=== PATIENT | female | born 1985 | race Caucasian/White ===

== ENCOUNTER 2019-02-05 09:58 | Emergency (ER) | payer OTHER ==
--- NOTE | 2019-02-05 10:46 | XRAY Report ---
Reason: pain with movement Procedure Date: 02/05/2019 Accession Number: [id number] / [id number] Procedure: XR - Wrist 4 View LT CPT Code: FULL RESULT: EXAM: LEFT WRIST RADIOGRAPHY EXAM DATE: 02/05/2019 10:38 AM. CLINICAL HISTORY: Pain with movement. COMPARISON: None. TECHNIQUE: 4 views. FINDINGS: Bones: Normal. No fractures or bone lesions. Joints: Normal. No subluxations. Soft Tissues: Normal. No soft tissue swelling. IMPRESSION: Normal wrist radiography. No acute osseous abnormality. RADIA
--- NOTE | 2019-02-05 11:35 | ED Physician Documentation ---
PD HPI UPPER EXT INJURY - Stated complaint Stated Complaint: WRIST PX - Chief complaint Chief Complaint: Ext Problem - History obtained from History obtained from: Patient - History of Present Illness Location: Left, Wrist Type of injury: Fall Where injury occurred: Home Timing - onset: How many days ago (4) Timing - duration: Days (4) Timing - details: Abrupt onset, Still present Improved by: Rest, Immobilization Worsened by: Moving, Palpating Associated symptoms: Swelling. No: Weakness, Numbness Contributing factors: No: Anticoagulated Similar symptoms before: Has not had sx before Recently seen: Not recently seen - Additonal information Additional information: 33-year-old female fell in her home 4 days ago and she had some pain in her left wrist and the pain is progressively worsened. She has continued to use her wrist and describes the pain is over the dorsum of the wrist especially if she is using it. She is holding her wrist in a flexed position Review of Systems Constitutional: denies: Fever Ears: denies: Ear pain Nose: denies: Congestion Respiratory: denies: Cough GI: denies: Vomiting PD PAST MEDICAL HISTORY - Present Medications Home Medications: Ambulatory Orders Medication Instructions Recorded Confirmed Ethinyl Estradiol/Drospirenone 1 each PO DAILY 02/05/19 02/05/19 [Melissa 28 Tablet] Hydrocodone/Acetaminophen 1 - 2 each PO Q6H PRN #14 tablet 02/05/19 [Hydrocodon-Acetaminophen 5-325] Lorazepam [Ativan] 2 mg PO TID 02/05/19 02/05/19 Venlafaxine ER [Effexor ER] 225 mg PO DAILY 02/05/19 02/05/19 - Allergies Allergies/Adverse Reactions: Allergies Allergy/AdvReac Type Severity Reaction Status Date / Time No Known Drug Allergies Allergy Verified 02/05/19 10:09 - Social History Does the pt smoke?: No Smoking Status: Never smoker PD ED PE NORMAL - Vitals Vital signs reviewed: Yes (hypertensive ) - General General: Alert and oriented X 3, No acute distress, Well developed/nourished - HEENT HEENT: Atraumatic, PERRL, EOMI - Respiratory Respiratory: No respiratory distress - Derm Derm: Normal color, Warm and dry, No rash - Extremities Extremities: No deformity, No edema, Other (There is tenderness to the wrist on the left over the dorsum of the wrist and there is no tenderness to the anatomic snuff box. She is able to flex and extend the wrist but with pain . Distal n/v is intact. 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 No acute osseous abnormality.), EMP read indepedently, See rad report Procedures - Splint (location) wrist Splint applied by: Tech Type of splint: Fiberglass, Volar cock up Other: Patient tolerated well, No complications, Neurovascular intact, Good alignment PD MEDICAL DECISION MAKING - ED course Complexity details: reviewed results, re-evaluated patient, considered differential, d/w patient ED course: 33-year-old female with a fall and pain in her wrist has no evidence of fracture on x-ray examination she is placed into a volar cock-up splint and expected to need to wear this for 1 to 2 weeks. She does not have tenderness over the anatomic snuffbox. She does have a primary care doctor for follow-up. Departure - Departure Disposition: 01 Home, Self Care Clinical Impression: Left wrist sprain Qualifiers: Encounter type: initial encounter Qualified Code(s): S63.502A - Unspecified sprain of left wrist, initial encounter Condition: Stable Instructions: ED Sprain Wrist Follow-Up: HATTIE MCKNIGHT [Primary Care Provider] - Prescriptions: Hydrocodone/Acetaminophen [Hydrocodon-Acetaminophen 5-325] 1 - 2 each PO Q6H PRN #14 tablet PRN Reason: pain
[2019-02-05 12:06] VITALS: BP 133/86
== END 2019-02-05 12:04 | disposition home or self-care (01) ==
LOC: ED 09:58
DX: S63.502A Unspecified sprain of left wrist, initial encounter (principal); W19.XXXA Unspecified fall, initial encounter; Y92.009 Unspecified place in unspecified non-institutional (private) residence as the place of occurrence of the external cause
CPT/HCPCS: 29125; 99283

== ENCOUNTER 2019-08-29 11:18 | Emergency (ER) | payer OTHER ==
[2019-08-29] MEDS ORDERED: CHERRY SYRUP 10 ML UDC PO ONE (12:01)
[2019-08-29] MEDS ORDERED: DEXAMETHASONE 10 MG/ML VIAL PO STA (12:01)
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
[2019-08-29] MEDS ORDERED: KETOROLAC 60 MG/2 ML VIAL IM STA (12:12)
--- NOTE | 2019-08-29 12:50 | XRAY Report ---
Reason: fall lower back pain Procedure Date: 08/29/2019 Accession Number: [id number] / [id number] Procedure: XR - Lumbar Spine 2 View CPT Code: FULL RESULT: EXAM: LUMBOSACRAL SPINE RADIOGRAPHY EXAM DATE: 08/29/2019 12:34 PM. CLINICAL HISTORY: Fall, lower back pain. COMPARISONS: RIBS W/PA CHEST LT 08/29/2019 12:08 PM. TECHNIQUE: 3 views. FINDINGS: Alignment: Normal. No spondylolisthesis or scoliosis. Bones: Five [id number] lumbar vertebral bodies are present. No fractures or bone lesions. Disks: Disk space heights are generally preserved with the exception of L5-S1 where there is loss of disk space height, endplate sclerosis and marginal osteophytosis. Facets: There is multilevel facet arthropathy which is most pronounced at L5 where it is moderate. L5 pars defects are suspected. Sacroiliac Joints: Unremarkable. Soft Tissues: Normal. The visualized bowel gas pattern is normal. IMPRESSION: L5 degenerative changes likely due to pars defects. RADIA
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
[2019-08-29 13:37] VITALS: BP 126/82
== END 2019-08-29 13:37 | disposition home or self-care (01) ==
LOC: ED 11:18
DX: S22.32XA Fracture of one rib, left side, initial encounter for closed fracture (principal); W01.198A Fall on same level from slipping, tripping and stumbling with subsequent striking against other object, initial encounter; Y93.01 Activity, walking, marching and hiking; Y92.008 Other place in unspecified non-institutional (private) residence as the place of occurrence of the external cause; M51.36 Other intervertebral disc degeneration, lumbar region
CPT/HCPCS: 71101; 72100; 96372; 99284; A9270

== ENCOUNTER 2019-12-09 16:49 | Emergency (ER) | payer OTHER ==
[2019-12-09 16:59] VITALS: BP 132/76
[2019-12-09 17:43] LABS: BILIRUBIN,URINE NEGATIVE (NEGATIVE); GLUCOSE, URINE (UA) NEGATIVE (NEGATIVE); KETONES,URINE (UA) NEGATIVE (NEGATIVE); LEUKOCYTE ESTERASE, URINE NEGATIVE (NEGATIVE); NITRITE,URINE NEGATIVE (NEGATIVE); OCCULT BLOOD,URINE NEGATIVE (NEGATIVE); PROTEIN,URINE NEGATIVE (NEGATIVE); UROBILINOGEN,URINE 0.2 (NORMAL) E.U./dL (NORMAL)
[2019-12-09 17:45] LABS: CLARITY,URINE CLEAR (CLEAR)
[2019-12-09] MEDS ORDERED: DEXAMETHASONE 10 MG/ML VIAL PO STA (17:54)
[2019-12-09] MEDS ORDERED: CYCLOBENZAPRINE 10 MG TABLET PO STA (17:54)
[2019-12-09] MEDS ORDERED: CHERRY SYRUP 10 ML UDC PO ONE (17:54)
--- NOTE | 2019-12-09 18:01 | ED Physician Documentation ---
PD HPI BACK PAIN - Stated complaint Stated Complaint: LOWER BACK/GROIN PX - Chief complaint Chief Complaint: Back Pain - History obtained from History obtained from: Patient - History of Present Illness Timing - onset: How many days ago (2) Timing - duration: Days (2) Timing - details: Gradual onset Pain level max: 6 Pain level now: 5 Location: Lower, Right Quality: Pain, Spasm Associated symptoms: No: Fever, Weakness, Numbness, Incontinent of urine, Unable to urinate, Hematuria, Incontinent of stool Improves with: Rest Worsened by: Movement, Twisting Contributing factors: Other (Patient states that the pain started after she was doing cheerleading kicks with her daughter, felt a pull in the right groin, fell and twisted on her back.). 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 - Present Medications Home Medications: Ambulatory Orders Medication Instructions Recorded Confirmed Ethinyl Estradiol/Drospirenone 1 each PO DAILY 02/05/19 08/29/19 [Melissa 28 Tablet] Lorazepam [Ativan] 2 mg PO TID 02/05/19 08/29/19 Venlafaxine ER [Effexor ER] 225 mg PO DAILY 02/05/19 08/29/19 Hydrocodone/Acetaminophen 1 - 2 each PO Q6H PRN #14 tablet 08/29/19 [Hydrocodon-Acetaminophen 5-325] Cyclobenzaprine [Flexeril] 10 mg PO TID PRN #20 tablet 12/09/19 Hydrocodone/Acetaminophen 1 - 2 each PO Q6H PRN #10 tablet 12/09/19 [Hydrocodon-Acetaminophen 5-325] Meloxicam [Mobic] 15 mg PO DAILY PRN #20 tablet 12/09/19 - Allergies Allergies/Adverse Reactions: Allergies Allergy/AdvReac Type Severity Reaction Status Date / Time No Known Drug Allergies Allergy Verified 12/09/19 16:59 - Social History Does the pt smoke?: No Smoking Status: Never smoker Does the pt drink ETOH?: No Does the pt have substance abuse?: No PD ED PE NORMAL - Vitals Vital signs reviewed: Yes - General General: Alert and oriented X 3, No acute distress, Well developed/nourished - HEENT HEENT: Moist mucous membranes - Neck Neck: Supple, no meningeal sign - Cardiac Cardiac: RRR, Strong equal pulses - Respiratory Respiratory: No respiratory distress, Clear bilaterally - Abdomen Abdomen: Soft, Non tender, Non distended - Back Back: No spinal TTP, Other (Tender to palpation right low lumbar paraspinal spasm present. Also tender over the right SI joint.) - Derm Derm: Warm and dry - Extremities Extremities: Other (Normal bilateral lower extremity patellar and ankle jerk reflexes. Normal great toe extension bilaterally. no saddle anesthesia. No bony tenderness in the right lower extremity. Does have pain with internal and external rotation of the right thigh and hip. Neurovascular intact) - Neuro Neuro: Alert and oriented X 3, No motor deficit, No sensory deficit - Psych Psych: Normal mood, Normal affect Results - Vitals Vitals: Vital Signs - 24 hr 12/09/19 16:55 Temperature 36.2 C L Heart Rate 101 H Respiratory 16 Rate Blood Pressure 132/76 H O2 Saturation 96 Oxygen O2 Source Room air - Labs Labs: Laboratory Tests 12/09/19 12/09/19 17:00 17:00 Urine Color YELLOW Urine Clarity CLEAR Urine pH 6.0 Ur Specific [place] 1.020 1.020 Urine Protein NEGATIVE Urine Glucose (UA) NEGATIVE Urine Ketones NEGATIVE Urine Occult Blood NEGATIVE Urine Nitrite NEGATIVE Urine Bilirubin NEGATIVE Urine Urobilinogen 0.2 (NORMAL) Ur Leukocyte Esterase NEGATIVE Ur Microscopic Review NOT INDICATED Urine Culture Comments NOT INDICATED Urine HCG, Qual NEGATIVE PD MEDICAL DECISION MAKING - ED course Complexity details: considered differential (No cauda equina, no spinal epidural abscess, no fracture, no aortic dissection or evidence of aneursym rupture), d/w patient ED course: Patient with what appears to be a low back strain and right groin strain. No evidence of cauda equina, epidural abscess or fracture. Feels better after medication. Ambulating well. No neurological deficits. Patient counseled regarding signs and symptoms for which I believe and urgent re-evaluation would be necessary. Patient with good understanding of and agreement to plan and is comfortable going home at this time This document was made in part using voice recognition software. While efforts are made to proofread this document, sound alike and grammatical errors may occur. Departure - Departure Disposition: 01 Home, Self Care Clinical Impression: Strain of muscle of right groin region Lumbar strain Qualifiers: Encounter type: initial encounter Qualified Code(s): S39.012A - Strain of muscle, fascia and tendon of lower back, initial encounter Condition: Good Instructions: ED Sprain Strain Lumbar Follow-Up: JUSTIN STARK ARNP [Primary Care Provider] - Within 1 week Prescriptions: Cyclobenzaprine [Flexeril] 10 mg PO TID PRN #20 tablet PRN Reason: Spasms Hydrocodone/Acetaminophen [Hydrocodon-Acetaminophen 5-325] 1 - 2 each PO Q6H PRN #10 tablet PRN Reason: pain Meloxicam [Mobic] 15 mg PO DAILY PRN #20 tablet PRN Reason: pain Comments: Follow-up with your doctor for a repeat evaluation within 1 week. Use the medications as prescribed. This should improve over the next few days. You may still have symptoms for 2 weeks. Do not drink alcohol or drive while on narcotic pain medicine. Note that many narcotic pain relievers also contain tylenol/acetaminophen. Please ensure that your total dose of acetaminophen from all sources does not exceed 3 grams (3000mg) per day. You may constipated on this medication, take a stool softener such as "Colace" twice a day while you are on it. Also recommend a vvnu-upa-gfauwlo laxative such as senna or MiraLAX any day that you do not have a bowel movement. If you received narcotic pain medication in the emergency department, do not drive or operate machinery for the next 24 hours. Discharge Date/Time: 12/09/19 18:16
[2019-12-09] MEDS ORDERED: MELOXICAM 7.5 MG TABLET PO STA (18:05)
[2019-12-09 18:08] LABS: HCG UR QUAL NEGATIVE
[2019-12-10] MEDS ORDERED: MELOXICAM 7.5 MG TABLET PO SCH (09:00)
== END 2019-12-09 18:16 | disposition home or self-care (01) ==
LOC: ED 16:49
DX: S39.011A Strain of muscle, fascia and tendon of abdomen, initial encounter (principal); S39.012A Strain of muscle, fascia and tendon of lower back, initial encounter; X50.1XXA Overexertion from prolonged static or awkward postures, initial encounter; Y93.45 Activity, cheerleading
CPT/HCPCS: 81003; 81025; 99283; 99284; A9270; 81001; 87086

== ENCOUNTER 2020-01-20 08:51 | Emergency (ER) | payer OTHER ==
--- NOTE | 2020-01-20 09:13 | ED Physician Documentation ---
PD HPI MHE - Stated complaint Stated Complaint: ANXIETY - Chief complaint Chief Complaint: General - History obtained from History obtained from: Patient - History of Present Illness Primary symptom: Depression (father on , needs to fly to [place] on . since last , increased anxiety, diff eating/sleeping. c/o increased anxiety. denies throught to harm self or other. denies any plan. requesting help to manage anxiety while dealing with fathers .). 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 Was in contact with PCP and will get counseling started when returns from [place], planned right now to be or .) Recently seen: Not recently seen Review of Systems Constitutional: denies: Fever, Chills Nose: denies: Rhinorrhea / runny nose, Congestion Throat: denies: Sore throat Respiratory: denies: Cough Neurologic: denies: Focal weakness, Numbness Psychiatric: reports: Depressed, Anxiety, Insomnia. 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 - Present Medications Home Medications: Ambulatory Orders Medication Instructions Recorded Confirmed Venlafaxine ER [Effexor ER] 225 mg PO DAILY 02/05/19 08/29/19 ALPRAZolam [Alprazolam] 0.5 mg PO BID PRN #25 tablet 01/20/20 traZODone [Desyrel] 50 mg PO HS PRN #12 tablet 01/20/20 - Allergies Allergies/Adverse Reactions: Allergies Allergy/AdvReac Type Severity Reaction Status Date / Time No Known Drug Allergies Allergy Verified 01/20/20 09:01 - Social History Does the pt smoke?: No Smoking Status: Never smoker Does the pt drink ETOH?: No Does the pt have substance abuse?: No PD ED PE NORMAL - Vitals Vital signs reviewed: Yes - General General: Alert and oriented X 3, No acute distress, Well developed/nourished - Neck Neck: Supple, no meningeal sign, No adenopathy - Cardiac Cardiac: RRR, No murmur - Respiratory Respiratory: Clear bilaterally - Abdomen Abdomen: Normal bowel sounds, Soft, Non tender, Non distended - Back Back: No CVA TTP - Derm Derm: Normal color, Warm and dry - Extremities Extremities: Normal ROM s pain - Neuro Neuro: Alert and oriented X 3, No motor deficit, No sensory deficit Results - Vitals Vitals: Vital Signs - 24 hr 01/20/20 01/20/20 09:01 10:38 Temperature 36.2 C L 36.7 C Heart Rate 99 79 Respiratory 20 16 Rate Blood Pressure 125/83 H 110/69 O2 Saturation 97 98 Oxygen O2 Source Room air PD MEDICAL DECISION MAKING - ED course Complexity details: considered differential (seems reasonable to Rx short term meds to help with anxiety and sleep), d/w patient Departure - Departure Disposition: Home, Self Care Clinical Impression: Grief reaction, Anxiety Condition: Stable Record reviewed to determine appropriate education?: Yes Instructions: ED Stress React Follow-Up: KODY Carreon [Provider Group] Prescriptions: ALPRAZolam [Alprazolam] 0.5 mg PO BID PRN #25 tablet PRN Reason: Anxiety traZODone [Desyrel] 50 mg PO HS PRN #12 tablet PRN Reason: Insomnia Comments: Stay well-hydrated. No alcohol. Continue usual medications. Add trazodone low-dose at night for sleep. Add alprazolam once or twice daily as needed for anxiety. Follow-up with grief counseling as planned through your primary care as soon as you return. Call the crisis line or seek help in [place] while there as needed. Discharge Date/Time: 01/20/20 10:39
[2020-01-20] MEDS ORDERED: ALPRAZolam 0.25 MG TABLET PO STA (09:39)
[2020-01-20 10:39] VITALS: BP 110/69
== END 2020-01-20 10:39 | disposition home or self-care (01) ==
LOC: ED 08:51
DX: F43.23 Adjustment disorder with mixed anxiety and depressed mood (principal); G47.00 Insomnia, unspecified
CPT/HCPCS: 99282; 99283; A9270

== ENCOUNTER 2020-02-06 16:08 | Emergency (ER) | payer OTHER ==
[2020-02-06] MEDS ORDERED: ALPRAZolam 0.25 MG TABLET PO STA (16:34)
--- NOTE | 2020-02-06 16:57 | ED Physician Documentation ---
PD HPI MHE - Stated complaint Stated Complaint: ANXIETY - Chief complaint Chief Complaint: MHE - History obtained from History obtained from: Patient - History of Present Illness Primary symptom: Anxiety Timing - onset: How many weeks ago (several weeks) Pain level max: 0 Pain level now: 0 Recently seen: Emergency Dept - Additional information Additional information: Patient states that her father recently unexpectedly and her is being deployed for 4 months tomorrow. She is having increased anxiety. Was seen here a few weeks ago for same and given Xanax. Because of the coronavirus, she has been unable to see her primary care provider. She has started talking to a counselor over the phone. She is not suicidal or homicidal. Review of Systems Constitutional: denies: Fever, Chills GI: denies: Vomiting, Diarrhea : denies: Now EGA Neurologic: denies: Altered mental status Psychiatric: reports: Anxiety. 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 - Present Medications Home Medications: Ambulatory Orders Medication Instructions Recorded Confirmed Venlafaxine ER [Effexor ER] 225 mg PO DAILY 02/05/19 08/29/19 ALPRAZolam [Alprazolam] 0.5 mg PO BID PRN #25 tablet 01/20/20 traZODone [Desyrel] 50 mg PO HS PRN #12 tablet 01/20/20 Alprazolam [Xanax] 1 mg PO BID PRN #20 tablet 02/06/20 - Allergies Allergies/Adverse Reactions: Allergies Allergy/AdvReac Type Severity Reaction Status Date / Time No Known Drug Allergies Allergy Verified 02/06/20 16:18 - Social History Does the pt smoke?: No Smoking Status: Never smoker Does the pt drink ETOH?: No Does the pt have substance abuse?: No PD ED PE NORMAL - Vitals Vital signs reviewed: Yes - General General: Alert and oriented X 3, No acute distress, Well developed/nourished - HEENT HEENT: Moist mucous membranes - Neck Neck: Supple, no meningeal sign - Cardiac Cardiac: RRR - Respiratory Respiratory: No respiratory distress, Clear bilaterally - Abdomen Abdomen: Soft, Non tender, Non distended - Derm Derm: Warm and dry - Extremities Extremities: No edema - Neuro Neuro: Alert and oriented X 3 - Psych Psych: Other (Tearful. Anxious.) Results - Vitals Vitals: Vital Signs - 24 hr 02/06/20 16:13 Temperature 36.7 C Heart Rate 98 Respiratory 18 Rate Blood Pressure 137/87 H O2 Saturation 96 Oxygen O2 Source Room air PD MEDICAL DECISION MAKING - ED course Complexity details: reviewed old records, considered differential, d/w patient ED course: Patient with grief reaction anxiety. She is unable to see her doctor secondary to [place] We will prescribe her a small amount of Xanax for home. Her mother is coming to stay with her from [place]. Social work was also consulted for resources. She is seeing a counselor now. Has a phone call with her counselor tomorrow Patient counseled regarding signs and symptoms for which I believe and urgent re- evaluation would be necessary. Patient with good understanding of and agreement to plan and is comfortable going home at this time This document was made in part using voice recognition software. While efforts are made to proofread this document, sound alike and grammatical errors may occur. Departure - Departure Disposition: 01 Home, Self Care Clinical Impression: Anxiety, Grief reaction Condition: Good Instructions: ED Stress React Follow-Up: JUSTIN STARK ARNP [Primary Care Provider] - Within 1 week Prescriptions: Alprazolam [Xanax] 1 mg PO BID PRN #20 tablet PRN Reason: Anxiety Comments: Follow-up with her counselor tomorrow. Follow-up with your doctor for further medication. Return if you worsen. Crisis Line and is available to talk to someone [email or web address] is also available to chat with someone online if you prefer. There are also many resources on this website and apps for your phone to help with your mental health You can also text the word START to [phone] to chat with someome via text.
[2020-02-06 17:20] VITALS: BP 130/84
== END 2020-02-06 17:19 | disposition home or self-care (01) ==
LOC: ED 16:08
DX: F43.22 Adjustment disorder with anxiety (principal)
CPT/HCPCS: 99283; 99284; A9270

== ENCOUNTER 2020-02-27 17:49 | Emergency (ER) | payer OTHER ==
[2020-02-27 18:03] VITALS: BP 140/104
[2020-02-27] MEDS ORDERED: ALPRAZolam 0.25 MG TABLET PO STA (18:21)
--- NOTE | 2020-02-27 18:23 | ED Physician Documentation ---
PD HPI MHE - Stated complaint Stated Complaint: ANXIETY, DEPRESSION - Chief complaint Chief Complaint: MHE - History obtained from History obtained from: Patient - History of Present Illness Primary symptom: Anxiety (34-year-old woman with longstanding anxiety and she is had a tough couple of months, her father recently and then her is deployed. She denies suicidal or homicidal ideation but needs something for anxiety and help with sleep. She has a plan to be admitted in [place] in about 10 days, but does not want to be admitted locally because she does not have childcare locally for her 4 and 6-year-old.) Review of Systems Constitutional: denies: Fever, Chills Respiratory: denies: Dyspnea, Cough GI: reports: Nausea. 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 - Present Medications Home Medications: Ambulatory Orders Medication Instructions Recorded Confirmed Venlafaxine ER [Effexor ER] 225 mg PO DAILY 02/05/19 02/27/20 traZODone [Desyrel] 50 mg PO HS PRN #12 tablet 01/20/20 02/27/20 Alprazolam [Xanax] 1 mg PO BID PRN #20 tablet 02/06/20 02/27/20 Alprazolam [Xanax] 1 mg PO BID #20 tablet 02/27/20 - Allergies Allergies/Adverse Reactions: Allergies Allergy/AdvReac Type Severity Reaction Status Date / Time No Known Drug Allergies Allergy Verified 02/27/20 17:59 - Social History Does the pt smoke?: No Smoking Status: Never smoker Does the pt drink ETOH?: No Does the pt have substance abuse?: No PD ED PE NORMAL - Vitals Vital signs reviewed: Yes - General General: Alert and oriented X 3, Other (Tearful and anxious) - HEENT HEENT: PERRL, EOMI - Neuro Neuro: Alert and oriented X 3, Normal speech - Psych Psych: Normal mood, Normal affect Results - Vitals Vitals: Vital Signs - 24 hr 02/27/20 17:59 Temperature 36.6 C Heart Rate 103 H Respiratory 15 Rate Blood Pressure 140/104 H O2 Saturation 98 Oxygen O2 Source Room air PD MEDICAL DECISION MAKING - ED course ED course: 34-year-old woman with worsening of anxiety and depression. No suicidal or homicidal ideation. No hallucinations. She does not want to be admitted locally and requests a refill of the alprazolam until she can get admitted in [place] which is her plan. Departure - Departure Disposition: 01 Home, Self Care Clinical Impression: Anxiety, Grief reaction Condition: Good Record reviewed to determine appropriate education?: Yes Instructions: ED Depression, ED Panic Attack Prescriptions: Alprazolam [Xanax] 1 mg PO BID #20 tablet Comments: Return anytime if you worsen or decide you would like to be admitted to a psychiatric facility closer to here. Otherwise follow the plan you already have in place. Do not drink or drive while taking the alprazolam.
== END 2020-02-27 18:44 | disposition home or self-care (01) ==
LOC: ED 17:49
DX: F41.9 Anxiety disorder, unspecified (principal); F32.9 Major depressive disorder, single episode, unspecified; F43.20 Adjustment disorder, unspecified
CPT/HCPCS: 99282; 99283; A9270

== ENCOUNTER 2020-03-02 17:19 | Emergency (ER) | payer OTHER ==
[2020-03-02] MEDS ORDERED: ALPRAZolam 0.25 MG TABLET PO STA (17:47)
--- NOTE | 2020-03-02 17:50 | ED Physician Documentation ---
History of Present Illness - Stated complaint Stated Complaint: MHE - Chief complaint Chief Complaint: General - History obtained from History obtained from: Patient - History of Present Illness Timing: Chronic Pain level max: 0 Pain level now: 0 - Additonal information Additional information: 34-year-old female presents the emergency department with increasing anxiety. She states that this been worsening over the past few weeks. Has had a of her father. is deployed. Her mother is now with her and helping with her children. She states she is out of her Xanax and requesting a short refill until she goes to [place] at the end of the week. She plans on checking herself into a psychiatric hospital at that point. She is not currently suicidal or homicidal. 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 - Present Medications Home Medications: Ambulatory Orders Medication Instructions Recorded Confirmed Venlafaxine ER [Effexor ER] 225 mg PO DAILY 02/05/19 02/27/20 traZODone [Desyrel] 50 mg PO HS PRN #12 tablet 01/20/20 02/27/20 Alprazolam [Xanax] 1 mg PO BID PRN #20 tablet 02/06/20 02/27/20 Alprazolam [Xanax] 1 mg PO BID #20 tablet 02/27/20 Alprazolam [Xanax] 1 mg PO BID PRN #14 tablet 03/02/20 - Allergies Allergies/Adverse Reactions: Allergies Allergy/AdvReac Type Severity Reaction Status Date / Time No Known Drug Allergies Allergy Verified 03/02/20 17:24 - Social History Does the pt smoke?: No Smoking Status: Never smoker Does the pt drink ETOH?: No Does the pt have substance abuse?: No PD ED PE NORMAL - Vitals Vital signs reviewed: Yes - General General: Alert and oriented X 3, No acute distress - HEENT HEENT: Moist mucous membranes - Neck Neck: Supple, no meningeal sign - Cardiac Cardiac: RRR - Respiratory Respiratory: No respiratory distress, Clear bilaterally - Derm Derm: Warm and dry, No rash - Neuro Neuro: Alert and oriented X 3 - Psych Psych: Normal mood, Normal affect Results - Vitals Vitals: Vital Signs - 24 hr 03/02/20 03/02/20 17:25 18:05 Temperature 37.2 C Heart Rate 108 H 87 Respiratory 17 16 Rate Blood Pressure 140/108 H 145/97 H O2 Saturation 100 98 Oxygen O2 Source Room air PD MEDICAL DECISION MAKING - ED course Complexity details: considered differential, d/w patient ED course: Patient with increasing anxiety. No suicidal or homicidal ID patient. Will prescribe a small amount of Xanax for her until she can be seen in [place] at the end of the week. Contracts for safety. Patient counseled regarding signs and symptoms for which I believe and urgent re-evaluation would be necessary. Patient with good understanding of and agreement to plan and is comfortable going home at this time This document was made in part using voice recognition software. While efforts are made to proofread this document, sound alike and grammatical errors may occur. Departure - Departure Disposition: 01 Home, Self Care Clinical Impression: Anxiety, Grief reaction Condition: Good Instructions: ED Panic Attack Follow-Up: your,doctor in 1 week [Other] Prescriptions: Alprazolam [Xanax] 1 mg PO BID PRN #14 tablet PRN Reason: Anxiety Comments: You need to follow-up with your doctor for further prescriptions. Follow-up with the [facility] and in [place] on Sunday. Return if you worsen. Do not drive or operate heavy machinery while taking the Xanax. Discharge Date/Time: 03/02/20 18:06
[2020-03-02 18:07] VITALS: BP 145/97
== END 2020-03-02 18:06 | disposition home or self-care (01) ==
LOC: EDUNIT# → ED 17:19
DX: F41.9 Anxiety disorder, unspecified (principal); F43.20 Adjustment disorder, unspecified; Z76.0 Encounter for issue of repeat prescription
CPT/HCPCS: 99283; A9270

== ENCOUNTER 2020-07-16 15:55 | Emergency (ER) | payer OTHER ==
--- NOTE | 2020-07-16 16:40 | ED Physician Documentation ---
History of Present Illness - Stated complaint Stated Complaint: ABD PAIN - Chief complaint Chief Complaint: Abd Pain - History obtained from History obtained from: Patient - History of Present Illness Timing: Today Pain level max: 5 Pain level now: 4 - Additonal information Additional information: 35-year-old female presents to the emergency department with right upper quadrant and right flank abdominal pain. Ongoing for the past 6 to 7 hours. States she has been told she has gallstones in the past. She states she has had increased urinary frequency as well. No dysuria. No vaginal bleeding or discharge. No nausea or vomiting. No diarrhea, some constipation. Nothing makes it better or worse. 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 - Present Medications Home Medications: Ambulatory Orders Medication Instructions Recorded Confirmed Venlafaxine ER [Effexor ER] 225 mg PO DAILY 02/05/19 02/27/20 traZODone [Desyrel] 50 mg PO HS PRN #12 tablet 01/20/20 02/27/20 Alprazolam [Xanax] 1 mg PO BID PRN #20 tablet 02/06/20 02/27/20 Alprazolam [Xanax] 1 mg PO BID #20 tablet 02/27/20 Alprazolam [Xanax] 1 mg PO BID PRN #14 tablet 03/02/20 Cefdinir 300 mg PO BID #20 capsule 07/16/20 - Allergies Allergies/Adverse Reactions: Allergies Allergy/AdvReac Type Severity Reaction Status Date / Time No Known Drug Allergies Allergy Verified 07/16/20 16:16 - Living Situation Living Arrangement: reports: At home - Social History Does the pt smoke?: No Smoking Status: Never smoker Does the pt drink ETOH?: No Does the pt have substance abuse?: No PD ED PE NORMAL - Vitals Vital signs reviewed: Yes - General General: Alert and oriented X 3, No acute distress, Well developed/nourished - HEENT HEENT: PERRL, Moist mucous membranes - Neck Neck: Supple, no meningeal sign - Cardiac Cardiac: RRR, Strong equal pulses - Respiratory Respiratory: No respiratory distress, Clear bilaterally - Abdomen Abdomen: Soft, Non distended, Other (Mild right upper quadrant tenderness to palpation. Negative Montilla sign) - Back Back: Other (Mild right CVA tenderness) - Derm Derm: Warm and dry - Extremities Extremities: No edema, No calf tenderness / cord - Neuro Neuro: Alert and oriented X 3 - Psych Psych: Normal mood, Normal affect Results - Vitals Vitals: Vital Signs - 24 hr 07/16/20 07/16/20 07/16/20 16:13 16:37 18:16 Temperature 36.6 C Heart Rate 94 80 90 Respiratory 20 16 18 Rate Blood Pressure 168/114 H 119/81 H 130/89 H O2 Saturation 96 100 100 07/16/20 19:20 Temperature Heart Rate 62 Respiratory 16 Rate Blood Pressure 122/68 O2 Saturation 99 Oxygen O2 Source Room air - Labs Labs: Laboratory Tests 07/16/20 07/16/20 07/16/20 16:30 16:34 16:34 WBC 9.1 RBC 4.25 Hgb 12.2 Hct 37.6 MCV 88.5 MCH 28.7 MCHC 32.4 RDW 14.5 Plt Count 369 MPV 10.1 Neut # (Auto) 7.1 H Lymph # (Auto) 1.2 L [place] # (Auto) 0.6 Eos # (Auto) 0.1 Baso # (Auto) 0.0 Absolute Nucleated RBC 0.00 Nucleated RBC % 0.0 Sodium 136 Potassium 3.5 Chloride 98 L Carbon Dioxide 27 Anion Gap 11.0 BUN 15 Creatinine 0.7 Estimated GFR (MDRD) 94 Glucose 100 Calcium 9.0 Total Bilirubin 0.5 AST 30 ALT 45 Alkaline Phosphatase 59 Total Protein 7.8 Albumin 4.2 Globulin 3.6 Albumin/Globulin Ratio 1.2 Lipase 34 Urine Color YELLOW Urine Clarity CLOUDY Urine pH 6.5 Ur Specific [place] 1.025 Urine Protein 30 H Urine Glucose (UA) NEGATIVE Urine Ketones TRACE Urine Occult Blood TRACE-LYSE Urine Nitrite NEGATIVE Urine Bilirubin NEGATIVE Urine Urobilinogen 1 (NORMAL) Ur Leukocyte Esterase MODERATE H Urine RBC 0-5 Urine WBC >25 H Ur Squamous Epith Cells MOD Squamous H Urine Bacteria Rare Urine Mucus Marked Strands Ur Microscopic Review INDICATED Urine Culture Comments NOT INDICATED Urine HCG, Qual NEGATIVE - Rads (name of study) Right upper quadrant ultrasound Radiology: Prelim report reviewed, EMP read contemporaneously, See rad report PD MEDICAL DECISION MAKING - ED course Complexity details: reviewed results, re-evaluated patient, considered differential, d/w patient ED course: 35-year-old female with what appears to be pyelonephritis, likely early. Given IV Rocephin and will place on cefdinir for home. Does not have cholecystitis. Patient is well-appearing, nontoxic. Afebrile. Patient counseled regarding signs and symptoms for which I believe and urgent re-evaluation would be necessary. Patient with good understanding of and agreement to plan and is comfortable going home at this time This document was made in part using voice recognition software. While efforts are made to proofread this document, sound alike and grammatical errors may occur. Cholelithiasis without definite evidence of cholecystitis. Evaluation limited by nonfasting state. Departure - Departure Disposition: 01 Home, Self Care Clinical Impression: Pyelonephritis Condition: Good Instructions: ED Kidney Infec Female Follow-Up: your,doctor in 1 week [Other] Prescriptions: Cefdinir 300 mg PO BID #20 capsule Comments: Call antibiotics until gone. Return if you worsen. Follow-up with your doctor for recheck in approximately 1 week. Discharge Date/Time: 07/16/20 19:20
[2020-07-16 16:52] LABS: GLUCOSE, URINE (UA) NEGATIVE (NEGATIVE); KETONES,URINE (UA) TRACE mg/dL (NEGATIVE); LEUKOCYTE ESTERASE, URINE MODERATE (NEGATIVE); NITRITE,URINE NEGATIVE (NEGATIVE); OCCULT BLOOD,URINE TRACE-LYSE (NEGATIVE); PH,URINE 6.5 PH (5.0-7.5); PROTEIN,URINE 30 mg/dL (NEGATIVE); UROBILINOGEN,URINE 1 (NORMAL) E.U./dL (NORMAL)
[2020-07-16 16:54] LABS: CLARITY,URINE CLOUDY (CLEAR); HCG UR QUAL NEGATIVE
[2020-07-16 16:56] LABS: BASOPHILS % (AUTO) 0.4 %; EOSINOPHILS # (AUTO) 0.1 10^3/uL (0.0-0.7); EOSINOPHILS % (AUTO) 1.2 %; HGB - HEMOGLOBIN 12.2 g/dL (12.0-16.0); LYMPHOCYTES # (AUTO) 1.2 10^3/uL (1.5-3.5); LYMPHOCYTES % (AUTO) 13.4 %; MEAN CORPUSCULAR HEMOGLOBIN 28.7 pg (27.0-31.0); MEAN CORPUSCULAR HGB CONC 32.4 g/dL (32.0-36.0); MEAN CORPUSCULAR VOLUME 88.5 fL (81.0-99.0); MEAN PLATELET VOLUME 10.1 fL (7.9-10.8); MONOCYTES # (AUTO) 0.6 10^3/uL (0.0-1.0); MONOCYTES % (AUTO) 6.1 %; NEUTROPHILS # (AUTO) 7.1 10^3/uL (1.5-6.6); NEUTROPHILS % (AUTO) 78.7 %; PLT - PLATELET COUNT 369 10^3/uL (130-450); RED BLOOD COUNT 4.25 10^6/uL (4.20-5.40); RED CELL DISTRIBUTION WIDTH 14.5 % (12.0-15.0); WHITE BLOOD COUNT 9.1 x10^3/uL (4.8-10.8)
[2020-07-16 16:59] LABS: BILIRUBIN,URINE NEGATIVE (NEGATIVE); ICTOTEST,URINE NEGATIVE
[2020-07-16 17:12] LABS: ALBUMIN 4.2 g/dL (3.2-5.5); ALBUMIN/GLOBULIN RATIO 1.2 (1.0-2.2); BILIRUBIN,TOTAL 0.5 mg/dL (0.2-1.0); CREATININE 0.7 mg/dL (0.4-1.0); TOTAL PROTEIN 7.8 g/dL (6.7-8.2)
[2020-07-16 17:17] LABS: BACTERIA,URINE Rare /HPF (None Seen); RBC,URINE 0-5 /HPF (0-5); SQUAMOUS EPITHELIAL CELL,UR MOD Squamous (<= Few)
[2020-07-16 17:18] LABS: MUCUS,URINE Marked Strands
[2020-07-16] MEDS ORDERED: cefTRIAXone 1 GM VIAL IVP STA (19:00)
--- NOTE | 2020-07-16 19:02 | Ultrasound Report ---
PROCEDURE: Abdomen Limited INDICATIONS: RUQ pain, h/o gallstones TECHNIQUE: Real-time focused scanning was performed of the right upper quadrant, with image documentation. COMPARISON: None. FINDINGS: The visualized liver shows no focal hepatic lesions. The gallbladder is nondistended secondary to nonfasting state. 2 stones are demonstrated in the gallb ladder fundus, measuring up to 1.5 cm and 1.4 cm. There is biliary sludge is noted within the gallbla dder lumen. Evaluation of gallbladder wall thickness is limited due to incomplete distention. No madelyn cholecystic fluid. No intra or extra hepatic biliary ductal dilatation. Common bile duct measures up to 0.4 cm. The visualized pancreas appears unremarkable sonographically. Right kidney measures up to 10.5 cm. No hydronephrosis. IMPRESSION: 1. Cholelithiasis without definite evidence of cholecystitis. Evaluation limited by nonfasting state. Reviewed by: Riley Lin MD on 07/16/2020 7:01 PM PDT Approved by: Riley Lin MD on 07/16/2020 7:01 PM PDT Station ID: [id number]
[2020-07-16 19:21] VITALS: BP 122/68
== END 2020-07-16 19:20 | disposition home or self-care (01) ==
LOC: ED 15:55
DX: N12 Tubulo-interstitial nephritis, not specified as acute or chronic (principal); K80.20 Calculus of gallbladder without cholecystitis without obstruction
CPT/HCPCS: 36415; 76705; 80053; 81001; 81003; 81025; 83690; 85025; 87086; 99284

== ENCOUNTER 2020-08-07 22:13 | Emergency (ER) | payer OTHER ==
--- NOTE | 2020-08-07 22:17 | ED Physician Documentation ---
History of Present Illness - Stated complaint Stated Complaint: RT FLANK PX - History obtained from History obtained from: Patient - Additonal information Additional information: Patient is a 35-year-old female who presents with right upper quadrant pain with a history of gallstones without fevers or any signs of jaundice reports nausea but no vomiting or constipation denies any other complaints. Review of Systems Constitutional: reports: Reviewed and negative Eyes: reports: Reviewed and negative Ears: reports: Reviewed and negative Nose: reports: Reviewed and negative Throat: reports: Reviewed and negative Cardiac: reports: Reviewed and negative Respiratory: reports: Reviewed and negative GI: reports: Abdominal Pain, Nausea : reports: Reviewed and negative Skin: reports: Reviewed and negative Musculoskeletal: reports: Reviewed and negative Neurologic: reports: Reviewed and negative Psychiatric: reports: Reviewed and negative Endocrine: reports: Reviewed and negative Immunocompromised: reports: Reviewed and negative PD PAST MEDICAL HISTORY - Past Medical History Psych: Anxiety - 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 - Present Medications Home Medications: Ambulatory Orders Medication Instructions Recorded Confirmed Venlafaxine ER [Effexor ER] 225 mg PO DAILY 02/05/19 02/27/20 traZODone [Desyrel] 50 mg PO HS PRN #12 tablet 01/20/20 02/27/20 - Allergies Allergies/Adverse Reactions: Allergies Allergy/AdvReac Type Severity Reaction Status Date / Time No Known Drug Allergies Allergy Verified 07/16/20 16:16 - Social History Does the pt smoke?: No Smoking Status: Never smoker Does the pt drink ETOH?: No Does the pt have substance abuse?: No PD ED PE NORMAL - Vitals Vital signs reviewed: Yes - General General: Alert and oriented X 3, No acute distress, Well developed/nourished - HEENT HEENT: Atraumatic, PERRL, Ears normal, Moist mucous membranes, Pharynx benign, Dentition benign - Neck Neck: Supple, no meningeal sign, No adenopathy - Cardiac Cardiac: RRR, No murmur, Strong equal pulses - Respiratory Respiratory: No respiratory distress, Clear bilaterally - Abdomen Abdomen: Normal bowel sounds, Soft, Other (Mild tenderness in the right upper quadrant but negative Montilla signs, no midline abdominal pulsatile mass no peritoneal signs nonsurgical abdomen) - Derm Derm: Warm and dry - Extremities Extremities: No deformity - Neuro Neuro: Alert and oriented X 3 - Psych Psych: Normal mood, Normal affect Results - Vitals Vitals: Vital Signs - 24 hr 08/07/20 08/08/20 22:16 00:24 Temperature 36.6 C 36.5 C Heart Rate 111 H 89 Respiratory 22 14 Rate Blood Pressure 142/104 H 127/80 O2 Saturation 98 98 Oxygen O2 Source Room air - Labs Labs: Laboratory Tests 08/07/20 08/07/20 08/07/20 22:31 23:08 23:08 WBC 11.4 H RBC 4.44 Hgb 12.7 Hct 39.1 MCV 88.1 MCH 28.6 MCHC 32.5 RDW 14.7 Plt Count 347 MPV 9.7 Neut # (Auto) 7.1 H Lymph # (Auto) 3.1 [place] # (Auto) 0.8 Eos # (Auto) 0.3 Baso # (Auto) 0.1 Absolute Nucleated RBC 0.00 Nucleated RBC % 0.0 PT 11.9 INR 1.1 APTT 32.5 Sodium Potassium Chloride Carbon Dioxide Anion Gap BUN Creatinine Estimated GFR (MDRD) Glucose Lactic Acid Calcium Total Bilirubin AST ALT Alkaline Phosphatase Total Protein Albumin Globulin Albumin/Globulin Ratio Lipase Urine Color YELLOW Urine Clarity CLEAR Urine pH 6.5 Ur Specific [place] 1.015 Urine Protein NEGATIVE Urine Glucose (UA) NEGATIVE Urine Ketones NEGATIVE Urine Occult Blood NEGATIVE Urine Nitrite NEGATIVE Urine Bilirubin NEGATIVE Urine Urobilinogen 0.2 (NORMAL) Ur Leukocyte Esterase SMALL H Urine RBC 0-5 Urine WBC 6-10 H Ur Squamous Epith Cells MANY Squamous H Urine Bacteria Rare Ur Microscopic Review INDICATED Urine Culture Comments NOT INDICATED Urine HCG, Qual NEGATIVE 08/07/20 08/07/20 23:08 23:20 WBC RBC Hgb Hct MCV MCH MCHC RDW Plt Count MPV Neut # (Auto) Lymph # (Auto) [place] # (Auto) Eos # (Auto) Baso # (Auto) Absolute Nucleated RBC Nucleated RBC % PT INR APTT Sodium 137 Potassium 3.7 Chloride 102 Carbon Dioxide 27 Anion Gap 8.0 BUN 29 H Creatinine 0.5 Estimated GFR (MDRD) 139 Glucose 108 H Lactic Acid 1.0 Calcium 9.2 Total Bilirubin 0.3 AST 23 ALT 16 Alkaline Phosphatase 60 Total Protein 7.9 Albumin 4.3 Globulin 3.6 Albumin/Globulin Ratio 1.2 Lipase 48 Urine Color Urine Clarity Urine pH Ur Specific [place] Urine Protein Urine Glucose (UA) Urine Ketones Urine Occult Blood Urine Nitrite Urine Bilirubin Urine Urobilinogen Ur Leukocyte Esterase Urine RBC Urine WBC Ur Squamous Epith Cells Urine Bacteria Ur Microscopic Review Urine Culture Comments Urine HCG, Qual PD MEDICAL DECISION MAKING - ED course ED course: 35-year-old female with a history of gallstones presents with right upper quadrant discomfort that is crampy coming and going relieved with IV fluids IV antiemetics and analgesics. Labs are unremarkable she is asymptomatic now would like to be discharged home and follow-up with her primary care provider. Departure - Departure Disposition: Home, Self Care Clinical Impression: Abdominal pain Qualifiers: Abdominal location: unspecified location Qualified Code(s): R10.9 - Unspecified abdominal pain Cholelithiasis Qualifiers: Cholelithiasis location: other site Biliary obstruction: without biliary obstruction Qualified Code(s): K80.80 - Other cholelithiasis without obstruction Condition: Stable Instructions: Gallstones Follow-Up: Zeferino Westfall MD [Provider Admit Priv/Credential] - Tomorrow Comments: Follow-up with your primary care provider on Sunday. Discharge Date/Time: 08/08/20 00:35
[2020-08-07 22:39] LABS: BILIRUBIN,URINE NEGATIVE (NEGATIVE); GLUCOSE, URINE (UA) NEGATIVE (NEGATIVE); KETONES,URINE (UA) NEGATIVE (NEGATIVE); LEUKOCYTE ESTERASE, URINE SMALL (NEGATIVE); NITRITE,URINE NEGATIVE (NEGATIVE); OCCULT BLOOD,URINE NEGATIVE (NEGATIVE); PH,URINE 6.5 PH (5.0-7.5); PROTEIN,URINE NEGATIVE (NEGATIVE); UROBILINOGEN,URINE 0.2 (NORMAL) E.U./dL (NORMAL)
[2020-08-07 22:40] LABS: CLARITY,URINE CLEAR (CLEAR)
[2020-08-07 22:45] LABS: HCG UR QUAL NEGATIVE
[2020-08-07 22:49] LABS: BACTERIA,URINE Rare /HPF (None Seen); RBC,URINE 0-5 /HPF (0-5); SQUAMOUS EPITHELIAL CELL,UR MANY Squamous (<= Few)
[2020-08-07] MEDS ORDERED: ONDANSETRON 4 MG/2 ML VIAL IVP STA (22:59)
[2020-08-07] MEDS ORDERED: MORPHINE 2 MG/ML CARPUJECT IVP STA (22:59)
[2020-08-07] MEDS ORDERED: SODIUM CHLORIDE 0.9% 1,000 ML IV STA (22:59)
[2020-08-07 23:23] LABS: BASOPHILS # (AUTO) 0.1 10^3/uL (0.0-0.1); BASOPHILS % (AUTO) 0.4 %; EOSINOPHILS # (AUTO) 0.3 10^3/uL (0.0-0.7); EOSINOPHILS % (AUTO) 2.4 %; HGB - HEMOGLOBIN 12.7 g/dL (12.0-16.0); LYMPHOCYTES # (AUTO) 3.1 10^3/uL (1.5-3.5); LYMPHOCYTES % (AUTO) 27.3 %; MEAN CORPUSCULAR HEMOGLOBIN 28.6 pg (27.0-31.0); MEAN CORPUSCULAR HGB CONC 32.5 g/dL (32.0-36.0); MEAN CORPUSCULAR VOLUME 88.1 fL (81.0-99.0); MEAN PLATELET VOLUME 9.7 fL (7.9-10.8); MONOCYTES # (AUTO) 0.8 10^3/uL (0.0-1.0); MONOCYTES % (AUTO) 6.6 %; NEUTROPHILS # (AUTO) 7.1 10^3/uL (1.5-6.6); NEUTROPHILS % (AUTO) 62.6 %; PLT - PLATELET COUNT 347 10^3/uL (130-450); RED BLOOD COUNT 4.44 10^6/uL (4.20-5.40); RED CELL DISTRIBUTION WIDTH 14.7 % (12.0-15.0); WHITE BLOOD COUNT 11.4 x10^3/uL (4.8-10.8)
[2020-08-07 23:30] LABS: INR 1.1 (0.8-1.2); PT - PROTHROMBIN TIME 11.9 secs (9.9-12.6)
[2020-08-07 23:37] LABS: PARTIAL THROMBOPLASTIN TIME 32.5 secs (24.9-33.3)
[2020-08-07 23:40] LABS: ALBUMIN 4.3 g/dL (3.2-5.5); ALBUMIN/GLOBULIN RATIO 1.2 (1.0-2.2); BILIRUBIN,TOTAL 0.3 mg/dL (0.2-1.0); CALCIUM 9.2 mg/dL (8.5-10.3); CREATININE 0.5 mg/dL (0.4-1.0); TOTAL PROTEIN 7.9 g/dL (6.7-8.2)
[2020-08-08 00:42] VITALS: BP 127/80
== END 2020-08-08 00:35 | disposition home or self-care (01) ==
LOC: ED 22:13
DX: K80.20 Calculus of gallbladder without cholecystitis without obstruction (principal)
CPT/HCPCS: 36415; 80053; 81001; 81003; 81025; 83605; 83690; 85025; 85610; 85730; 87086; 96361; 96374; 99283

== ENCOUNTER 2020-09-09 07:00 | Outpatient (CLI) | payer OTHER | END 2020-09-09 23:59 | disposition home or self-care (01) | LOC: COV 07:00 | PROVIDERS: ATTEND Surgery | DX: Z01.812 Encounter for preprocedural laboratory examination (principal); K80.70 Calculus of gallbladder and bile duct without cholecystitis without obstruction; Z20.828 Contact with and (suspected) exposure to other viral communicable diseases ==

== ENCOUNTER 2020-09-13 07:37 | Day surgery (SDC) | payer OTHER ==
[~2020-09-13 07:37] MED LIST: CEFAZOLIN SODIUM IN 0.9 % NACL 2 GM/100 ML BAG IV ONE
[2020-09-13 08:00] LABS: HCG UR QUAL NEGATIVE
[2020-09-13] MEDS ORDERED: LACTATED RINGERS 1,000 ML IV ONE ×2 (08:02→10:27)
[2020-09-13] MEDS ORDERED: MORPHINE 2 MG/ML CARPUJECT IVP PRN (08:16)
[2020-09-13] MEDS ORDERED: METOCLOPRAMIDE 10 MG/2 ML VIAL IVP PRN (08:16)
[2020-09-13] MEDS ORDERED: ONDANSETRON 4 MG/2 ML VIAL IVP PRN ×3 (08:16→10:24)
[2020-09-13] MEDS ORDERED: HYDROmorphone 0.5 MG/0.5 ML SYRINGE IVP PRN (08:16)
[2020-09-13] MEDS ORDERED: ePHEDrine 50 MG/ML VIAL IVP PRN (08:16)
[2020-09-13] MEDS ORDERED: ATROPINE ABBOJECT 1 MG/10 ML SYRINGE IVP PRN (08:16)
[2020-09-13] MEDS ORDERED: NALOXONE 0.4 MG/ML VIAL IVP PRN (08:16)
[2020-09-13] MEDS ORDERED: fentaNYL 100 MCG/2 ML VIAL IVP PRN (08:16)
--- NOTE | 2020-09-13 08:16 | ANESTHESIA ---
Pre-Anesthesia VS, & Labs - Diagnosis cholelithiasis, cholecystitis - Procedure Laparoscopic cholecystectomy Vital Signs: Temp Pulse Resp BP Pulse Ox 36.1 C L 93 16 108/83 H 97 09/13/20 07:48 09/13/20 07:48 09/13/20 07:48 09/13/20 07:48 09/13/20 07:48 Height: 5 ft 2 in Weight (kg): 64 kg Body Mass Index: 25.8 BMI Classification: Overweight - NPO >8 hours - Is Patient ?: Yes, No Home Medications and Allergies Home Medications: Ambulatory Orders Acetaminophen [Tylenol] 650 mg PO Q6H PRN 09/02/20 Ibuprofen [Motrin] 600 mg PO Q6H PRN 09/02/20 Venlafaxine ER [Effexor ER] 225 mg PO DAILY 02/05/19 Acetaminophen [Tylenol] 650 mg PO Q6H PRN 09/02/20 Ibuprofen [Motrin] 600 mg PO Q6H PRN 09/02/20 Allergies/Adverse Reactions: Allergies Allergy/AdvReac Type Severity Reaction Status Date / Time No Known Drug Allergies Allergy Verified 08/30/20 14:02 Anes History & Medical History - Anesthetic History Anesthesia Complications: reports: No previous complications Family history of Anesthesia Complications: Denies Family history of Malignant Hyperthermia: Denies - Medical History Cardiovascular: reports: None Pulmonary: reports: None Gastrointestinal: reports: Hepatitis, Cholelithiasis Urinary: reports: None Neuro: reports: None Musculoskeletal: reports: None Endocrine/Autoimmune: reports: None Blood Disorders: reports: None Skin: reports: None Smoking Status: Never smoker Psychosocial: reports: Anxiety - Surgical History Gynecologic: section, Breast reduction Orthopedic: Other Exam General: Alert, Oriented x3, Cooperative, No acute distress Dental: WNL Mouth Openin Fingerbreadth Neck Mobility: Normal Mallampati classification: I Respiratory: Lungs clear, Normal breath sounds, No respiratory distress, No accessory muscle use Cardiovascular: Regular rate, Normal S1, Normal S2, No murmurs Plan Anesthesia Type: General Consent for Procedure(s) Verified and Reviewed: Yes Code Status: Attempt Resuscitation ASA classification: 1-Healthy patient Is this case an emergency?: No
[2020-09-13] MEDS ORDERED: LACTATED RINGERS 1,000 ML IV SCH (09:00)
[2020-09-13] MEDS ORDERED: LIDOCAINE 1%-EPI 1:100000 20 ML MDV ONE (09:12)
[2020-09-13] MEDS ORDERED: BUPIVACAINE 0.5% PF 30 ML VIAL ONE (09:12)
[2020-09-13] MEDS ORDERED: fentaNYL 100 MCG/2 ML VIAL IVP ONE (09:22)
[2020-09-13] MEDS ORDERED: GLYCOPYRROLATE 1 MG/5 ML VIAL IVP ONE (09:22)
[2020-09-13] MEDS ORDERED: PROPOFOL 200 MG/20 ML VIAL IVP ONE (09:22)
[2020-09-13] MEDS ORDERED: ONDANSETRON 4 MG/2 ML VIAL IVP ONE (09:22)
[2020-09-13] MEDS ORDERED: KETOROLAC 30 MG/ML VIAL IVP ONE (09:22)
[2020-09-13] MEDS ORDERED: MIDAZOLAM 2 MG/2 ML VIAL IVP ONE (09:22)
[2020-09-13] MEDS ORDERED: METOPROLOL 5 MG/5 ML VIAL IVP ONE (09:22)
[2020-09-13] MEDS ORDERED: NEOSTIGMINE 1 MG/1 ML 10 ML MDV IVP ONE (09:22)
[2020-09-13] MEDS ORDERED: ACETAMINOPHEN 1,000 MG/100 ML 100 ML IV ONE (09:22)
[2020-09-13] MEDS ORDERED: DEXAMETHASONE 4 MG/ML VIAL IVP ONE (09:22)
[2020-09-13] MEDS ORDERED: ROCURONIUM 50 MG/5 ML VIAL IVP ONE (09:22)
[2020-09-13] MEDS ORDERED: BUPIVACAINE 0.5% PF 30 ML VIAL SUBQ ONE ×2 (09:46→10:09)
[2020-09-13] MEDS ORDERED: LIDOCAINE 1%-EPI 1:100000 20 ML MDV SUBQ ONE ×2 (09:46→10:09)
[2020-09-13] MEDS ORDERED: IBUPROFEN 600 MG TABLET PO PRN ×2 (10:16→10:24)
[2020-09-13] MEDS ORDERED: ACETAMINOPHEN 325 MG TABLET PO PRN ×2 (10:16→10:24)
[2020-09-13] MEDS ORDERED: oxyCODONE 5 MG TABLET PO PRN ×2 (10:16→10:24)
--- NOTE | 2020-09-13 10:16 | OPERATIVE REPORT ---
Operative Report - General Procedure Date: 09/13/20 Planned Procedure: Laparoscopic cholecystectomy Pre-Op Diagnosis: Cholelithiasis and cholecystitis Procedure Performed: Laparoscopic cholecystectomy Post Op Diagnosis: Cholelithiasis and cholecystitis - Procedure Note Primary Surgeon: Umm Anesthesia Provider: JACE Aceves Anesthesia Technique: General ET tube Pathology: Gallbladder in formalin to pathology Estimated Blood Loss (mL): 20 Findings: 1. large elongated gall bladder 2. right upper quadrant adhesions Complications: None apparent - Other Other Information/Narrative: After obtaining informed consent the patient is brought to the operating room and placed in the supine position on the operating table. Following successful induction of general endotracheal anesthesia, appropriate padding of all bony prominences, and placement of appropriate monitors, the abdomen was prepped and draped in the standard surgical fashion. A timeout was held per scope protocol. All elements of the surgical safety checklist were followed before, during, and after the procedure. Following infiltration with local anesthetic to create a field block, an incision was created inferior to the umbilicus and carried down through the skin and subcutaneous tissue to reveal the fascia below. 2-0 Vicryl retention sutures were placed on either side of the midline and the abdomen was entered under direct vision using a 15 blade scalpel. A 10 mm blunt Bajwa balloon trocar was placed in the abdominal cavity and it was insufflated to 15 mmHg pressure. The patient was placed in reverse Trendelenburg position with the left side rotated toward the floor. A second trocar, 5 mm, was placed in the midepigastrium under direct vision and after anesthetization of the surrounding skin.A third trocar, also 5 mm was placed in the right upper quadrant for retraction of the gallbladder and a fourth 1 just medial to that as a working port as well. The gallbladder was examined. It was adherent to the surrounding structures including the omentum and the right colon. These structures were carefully dissected free from the surface of the gallbladder using a mixture of blunt and sharp dissection. The fundus of the gallbladder was then grasped and elevated up over the liver revealing the cholecysto hepatoduodenal ligament. The neck of the gallbladder was retracted laterally and the cystic duct and artery were carefully identified. The common duct was visualized but not skeletonized. The cystic duct was clipped 3 times proximally and once distally and divided, the cystic artery was clipped twice proximally, once distally, and divided. The gallbladder was then liberated from its bed in the liver using cautery. It was placed in an Endo Catch bag and removed via the umbilical port with a camera in the epigastric position. The camera was replaced in the umbilical position and the abdomen was checked for hemostasis. It was irrigated with warm saline solution and aspirated free of all fluid and particulate matter. The trochars were then removed under direct vision and the abdomen desufflated. The umbilical incision was closed with interrupted Vicryl suture and Monocryl was placed in all of the skin incisions. All sponge, needle, and instrument counts were correct at the conclusion of the case. The patient was allowed awaken from anesthesia without difficulty and taken to the postanesthesia care unit in good condition.
[2020-09-13] MEDS: HYDROmorphone 1 MG/ML CARPUJECT ONE ×4 (10:31→10:53)
[2020-09-13] MEDS ORDERED: HYDROmorphone 1 MG/ML CARPUJECT ONE (10:53)
[2020-09-13] MEDS ORDERED: fentaNYL 100 MCG/2 ML VIAL ONE (11:11)
[2020-09-13] MEDS ORDERED: oxyCODONE 5 MG TABLET ONE (11:13)
[2020-09-13 12:01] VITALS: BP 130/70
--- NOTE | 2020-09-13 12:01 | ANESTHESIA POST OP EVALUATION ---
Anesthesia Post Eval - Post Anesthesia Eval Vitals: Last Vital Signs Temp 36.4 C L 09/13/20 11:58 Pulse 84 09/13/20 11:58 Resp 16 09/13/20 11:58 BP 130/70 09/13/20 11:58 Pulse Ox 98 09/13/20 11:58 CV Function Including HR & BP: positive: Stable Pain Control: positive: Satisfactory Nausea & Vomiting: positive: Negative Mental Status: positive: Baseline Respiratory Status: Airway Patent Hydration Status: Satisfactory Anesthesia Complications: positive: None
== END 2020-09-13 07:38 | disposition home or self-care (01) ==
LOC: SDS 07:37
PROVIDERS: ATTEND Surgery
PROC: 0FT44ZZ Resection of Gallbladder, Percutaneous Endoscopic Approach (ICD-10-PCS; principal; 2020-09-13 08:45)
DX: K80.10 Calculus of gallbladder with chronic cholecystitis without obstruction (principal); K82.8 Other specified diseases of gallbladder; I10 Essential (primary) hypertension; F41.9 Anxiety disorder, unspecified; F41.0 Panic disorder [episodic paroxysmal anxiety]; G89.29 Other chronic pain; M54.9 Dorsalgia, unspecified; M47.816 Spondylosis without myelopathy or radiculopathy, lumbar region; Z86.19 Personal history of other infectious and parasitic diseases; Z79.1 Long term (current) use of non-steroidal anti-inflammatories (NSAID)
CPT/HCPCS: 47562; 81025; A9270; J0131; J0690; J1170; J7120

== ENCOUNTER 2020-12-04 16:48 | Emergency (ER) | payer OTHER ==
[2020-12-04] MEDS ORDERED: HYDROmorphone 1 MG/ML CARPUJECT IVP STA (17:08)
--- NOTE | 2020-12-04 17:09 | ED Physician Documentation ---
PD HPI ABD PAIN - Stated complaint Stated Complaint: ABD PAIN - Chief complaint Chief Complaint: Abd Pain - History obtained from History obtained from: Patient (35-year-old woman with history of cholecystectomy presents with 4 months of progressive pelvic pain especially on the left side not associated with a regular menses, discharge or bleeding. 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 : None HEENT: None Psych: Depression, Anxiety, Panic attacks, Post traumatic stress disorder Musculoskeletal: None Derm: None - Past Surgical History Past Surgical History: Yes Ortho: Other /PROSTHETICS TECHNICIAN: section, Breast reduction - Present Medications Home Medications: Ambulatory Orders Medication Instructions Recorded Confirmed Venlafaxine ER [Effexor ER] 225 mg PO DAILY 02/05/19 09/13/20 Acetaminophen [Tylenol] 650 mg PO Q6H PRN 09/02/20 09/13/20 Ibuprofen [Motrin] 600 mg PO Q6H PRN 09/02/20 09/13/20 Ondansetron Odt [Zofran Odt] 4 mg TL Q6H PRN #10 tablet 09/13/20 oxyCODONE [Roxicodone] 5 mg PO ONCE PRN #20 tablet 09/13/20 oxyCODONE [Roxicodone] 5 mg PO Q4-6H PRN #20 tablet 09/13/20 - Allergies Allergies/Adverse Reactions: Allergies Allergy/AdvReac Type Severity Reaction Status Date / Time No Known Drug Allergies Allergy Verified 12/04/20 16:57 - Social History Does the pt smoke?: No Smoking Status: Never smoker Does the pt drink ETOH?: No Does the pt have substance abuse?: No - Immunizations Immunizations are current?: Yes - POLST Patient has POLST: No PD ED PE NORMAL - Vitals Vital signs reviewed: Yes - General General: Alert and oriented X 3, No acute distress - HEENT HEENT: PERRL, EOMI - Neck Neck: Supple, no meningeal sign, No bony TTP - Cardiac Cardiac: RRR, No murmur - Respiratory Respiratory: No respiratory distress, Clear bilaterally - Abdomen Abdomen: Normal bowel sounds, Soft, Other (Mild left pelvic tenderness without surgical signs) - Back Back: No CVA TTP, No spinal TTP - Derm Derm: Normal color, Warm and dry - Extremities Extremities: No edema, No calf tenderness / cord - Neuro Neuro: Alert and oriented X 3, Normal speech Results - Vitals Vitals: Vital Signs - 24 hr 12/04/20 16:52 Temperature 36.7 C Heart Rate 106 H Respiratory 16 Rate Blood Pressure 148/125 H O2 Saturation 100 Oxygen O2 Source Room air - Labs Labs: Laboratory Tests 12/04/20 12/04/20 12/04/20 16:25 16:25 17:00 WBC RBC Hgb Hct MCV MCH MCHC RDW Plt Count MPV Neut # (Auto) Lymph # (Auto) Bee # (Auto) Eos # (Auto) Baso # (Auto) Absolute Nucleated RBC Nucleated RBC % Sodium Potassium Chloride Carbon Dioxide Anion Gap BUN Creatinine Estimated GFR (MDRD) Glucose Calcium Total Bilirubin AST ALT Alkaline Phosphatase Total Protein Albumin Globulin Albumin/Globulin Ratio Lipase HCG, Quant 48925.00 Urine Color COLORLESS Urine Clarity CLEAR Urine pH 6.5 Ur Specific [place] <=1.005 Urine Protein NEGATIVE Urine Glucose (UA) NEGATIVE Urine Ketones NEGATIVE Urine Occult Blood NEGATIVE Urine Nitrite NEGATIVE Urine Bilirubin NEGATIVE Urine Urobilinogen 0.2 (NORMAL) Ur Leukocyte Esterase NEGATIVE Ur Microscopic Review NOT INDICATED Urine Culture Comments NOT INDICATED Urine HCG, Qual POSITIVE Blood Type A NEGATIVE 12/04/20 12/04/20 17:25 17:25 WBC 15.5 H RBC 4.52 Hgb 12.8 Hct 39.2 MCV 86.7 MCH 28.3 MCHC 32.7 RDW 15.9 H Plt Count 422 MPV 9.0 Neut # (Auto) 13.0 H Lymph # (Auto) 1.6 Bee # (Auto) 0.6 Eos # (Auto) 0.0 Baso # (Auto) 0.1 Absolute Nucleated RBC 0.00 Nucleated RBC % 0.0 Sodium 137 Potassium 3.4 L Chloride 102 Carbon Dioxide 23 Anion Gap 12.0 BUN 14 Creatinine 0.5 Estimated GFR (MDRD) 139 Glucose 99 Calcium 9.7 Total Bilirubin 0.6 AST 17 ALT 15 Alkaline Phosphatase 58 Total Protein 8.6 H Albumin 4.7 Globulin 3.9 Albumin/Globulin Ratio 1.2 Lipase 42 HCG, Quant Urine Color Urine Clarity Urine pH Ur Specific [place] Urine Protein Urine Glucose (UA) Urine Ketones Urine Occult Blood Urine Nitrite Urine Bilirubin Urine Urobilinogen Ur Leukocyte Esterase Ur Microscopic Review Urine Culture Comments Urine HCG, Qual Blood Type PD MEDICAL DECISION MAKING - ED course ED course: 35-year-old woman presents with progressive left pelvic pain. She did not think there was any possibility of , but her urine test was positive. Otherwise differential diagnosis included fibroids, ovarian cyst at al. Did seem like a pelvic issue. She did note breast tenderness. Upon finding out that she was she was quite distraught, this is at least not initially a wanted . She is having relationship difficulties with her . Subsequently her beta-hCG was 66,471. Blood type noted to be a negative but no current bleeding. She is aware of the need for RhoGam throughout . Verbal report from the linoleum floor layer shows a intrauterine at 6 weeks and 2 days with heart tones of 112. Patient will follow up with gynecology to discuss options, this is not a wanted . Departure - Departure Disposition: 01 Home, Self Care Clinical Impression: 6 weeks gestation of Condition: Good Record reviewed to determine appropriate education?: Yes Instructions: ED Preg Established Normal Sxs Follow-Up: [facility] [Provider Group] Comments: As discussed, the is at 6 weeks and 2 days. Follow-up with the meat butcher this week to discuss options. Return for new or worsening symptoms.
[2020-12-04 17:16] LABS: BILIRUBIN,URINE NEGATIVE (NEGATIVE); GLUCOSE, URINE (UA) NEGATIVE (NEGATIVE); KETONES,URINE (UA) NEGATIVE (NEGATIVE); LEUKOCYTE ESTERASE, URINE NEGATIVE (NEGATIVE); NITRITE,URINE NEGATIVE (NEGATIVE); OCCULT BLOOD,URINE NEGATIVE (NEGATIVE); PH,URINE 6.5 PH (5.0-7.5); PROTEIN,URINE NEGATIVE (NEGATIVE); UROBILINOGEN,URINE 0.2 (NORMAL) E.U./dL (NORMAL)
[2020-12-04 17:20] LABS: CLARITY,URINE CLEAR (CLEAR); HCG UR QUAL POSITIVE
[2020-12-04 17:34] LABS: BASOPHILS # (AUTO) 0.1 10^3/uL (0.0-0.1); BASOPHILS % (AUTO) 0.5 %; EOSINOPHILS % (AUTO) 0.3 %; HGB - HEMOGLOBIN 12.8 g/dL (12.0-16.0); LYMPHOCYTES # (AUTO) 1.6 10^3/uL (1.5-3.5); LYMPHOCYTES % (AUTO) 10.6 %; MEAN CORPUSCULAR HEMOGLOBIN 28.3 pg (27.0-31.0); MEAN CORPUSCULAR HGB CONC 32.7 g/dL (32.0-36.0); MEAN CORPUSCULAR VOLUME 86.7 fL (81.0-99.0); MONOCYTES # (AUTO) 0.6 10^3/uL (0.0-1.0); MONOCYTES % (AUTO) 4.1 %; PLT - PLATELET COUNT 422 10^3/uL (130-450); RED BLOOD COUNT 4.52 10^6/uL (4.20-5.40); RED CELL DISTRIBUTION WIDTH 15.9 % (12.0-15.0); WHITE BLOOD COUNT 15.5 x10^3/uL (4.8-10.8)
[2020-12-04 17:47] LABS: ALBUMIN 4.7 g/dL (3.2-5.5); ALBUMIN/GLOBULIN RATIO 1.2 (1.0-2.2); BILIRUBIN,TOTAL 0.6 mg/dL (0.2-1.0); CALCIUM 9.7 mg/dL (8.5-10.3); CREATININE 0.5 mg/dL (0.4-1.0); TOTAL PROTEIN 8.6 g/dL (6.7-8.2)
[2020-12-04] MEDS ORDERED: HYDROcod/ACET 5/325 Prepack 4 PO STA (18:39)
[2020-12-04 18:57] VITALS: BP 136/85
--- NOTE | 2020-12-04 19:12 | Ultrasound Report ---
PROCEDURE: OB First Trimester INDICATIONS: pelvic pain, preg OUTSIDE/PRIOR DATING DATA: Last menstrual period (LMP): Puncture. First dating scan (date and location): This scan. TECHNIQUE: Real-time scanning was performed of the fetus and maternal pelvic organs, with image documentation. COMPARISON: None FINDINGS: There is a single live intrauterine with gestational sac, yolk sac, and po le. heart rate is measured at 112 bpm. Embryo: Ball-rump length measures 0.51 cm corresponding to 6 weeks 2 days. Yolk sac measures 0.25 c m. The mean gestational sac diameter measures 1.84 cm corresponding to 6 weeks 5 days. There is a sma ll amount of perigestational hemorrhage encompassing less than 25% of the sac diameter. Measurement variability in dating: +/- 4 weeks by LMP, +/- 7 days by mean sac diameter (use before 6 weeks gestation if crown-rump length not able to be measured), +/- 5 days by crown-rump length (6-12 weeks gestation). Maternal organs: Ovaries within the left ovary is a heterogeneous cystic structure with peripheral v ascularity likely representing a corpus luteal cyst measuring 1.1 cm in greatest diameter. In additio n there is a thick-walled cystic lesion with internal anechoic pelvic region with peripheral vascular ity likely representing additional corpus luteal cyst.. No suspicious cystic or solid mass. No significant free fluid IMPRESSION: Single live intrauterine with heart rate of 112 bpm. Ball-rump length estimates gest ational age of 6 weeks 2 days and estimated date of delivery at 07/28/2021 Small amount of perigestational hemorrhage, common finding in the first trimester encompassing less t [place] 25% of the gestational sac. Corpus luteal cysts. Reviewed by: Oscar Sim DO on 12/04/2020 6:11 PM [facility] Approved by: Oscar Sim DO on 12/04/2020 6:11 PM [facility] Station ID: [id number]
--- NOTE | 2020-12-04 19:12 | Ultrasound Report ---
PROCEDURE: OB First Trimester INDICATIONS: pelvic pain, preg OUTSIDE/PRIOR DATING DATA: Last menstrual period (LMP): Puncture. First dating scan (date and location): This scan. TECHNIQUE: Real-time scanning was performed of the fetus and maternal pelvic organs, with image documentation. COMPARISON: None FINDINGS: There is a single live intrauterine with gestational sac, yolk sac, and po le. heart rate is measured at 112 bpm. Embryo: [place]-rump length measures 0.51 cm corresponding to 6 weeks 2 days. Yolk sac measures 0.25 c m. The mean gestational sac diameter measures 1.84 cm corresponding to 6 weeks 5 days. There is a sma ll amount of perigestational hemorrhage encompassing less than 25% of the sac diameter. Measurement variability in dating: +/- 4 weeks by LMP, +/- 7 days by mean sac diameter (use before 6 weeks gestation if crown-rump length not able to be measured), +/- 5 days by crown-rump length (6-12 weeks gestation). Maternal organs: Ovaries within the left ovary is a heterogeneous cystic structure with peripheral v ascularity likely representing a corpus luteal cyst measuring 1.1 cm in greatest diameter. In additio n there is a thick-walled cystic lesion with internal anechoic pelvic region with peripheral vascular ity likely representing additional corpus luteal cyst.. No suspicious cystic or solid mass. No significant free fluid IMPRESSION: Single live intrauterine with heart rate of [address] [place] [place]-rump length estimates gest ational age of 6 weeks 2 days and estimated date of delivery at 07/28/2021 Small amount of perigestational hemorrhage, common finding in the first trimester encompassing less t [place] 25% of the gestational sac. Corpus luteal cysts. Reviewed by: Oscar Sim DO on 12/04/2020 6:10 PM [facility] Approved by: Oscar Sim DO on 12/04/2020 6:10 PM [facility] Station ID: [id number]
== END 2020-12-04 18:58 | disposition home or self-care (01) ==
LOC: ED 16:48
DX: O26.899 Other specified pregnancy related conditions, unspecified trimester (principal); R10.2 Pelvic and perineal pain; Z3A.01 Less than 8 weeks gestation of pregnancy
CPT/HCPCS: 36415; 76801; 76817; 80053; 81003; 81025; 83690; 84702; 85025; 86900; 86901; 96374; 99284; 99285; J1170; 81001; 87086

== ENCOUNTER 2020-12-13 15:24 | Emergency (ER) | payer OTHER ==
[2020-12-13] MEDS ORDERED: RHO(D) IMMUNE GLOBULIN 300 MCG SYRINGE IM STA (16:01)
[2020-12-13] MEDS ORDERED: oxyCODONE 5 MG TABLET PO STA (16:01)
--- NOTE | 2020-12-13 16:04 | ED Physician Documentation ---
PD HPI ABD PAIN - Stated complaint Stated Complaint: ABD PAIN, SEIZURE - Chief complaint Chief Complaint: Abd Pain - History obtained from History obtained from: Patient - Additional information Additional information: 35-year-old woman with history of benzodiazepine abuse and pelvic pain. I saw her last week for ongoing pelvic pain, at which time she was surprised to find out that she was . There is no evidence of ectopic. She presents today because earlier today she had a severe episode of pelvic pain that caused her to pass out. She wonders if she might have had a seizure because there was some shaking involved reportedly but there was no postictal period. She is planning to have an elective medical termination in 3 days. 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 : None HEENT: None Psych: Depression, Anxiety, Panic attacks, Post traumatic stress disorder Musculoskeletal: None Derm: None - Past Surgical History Past Surgical History: Yes Ortho: Other /ENT CONSULTANT: section, Breast reduction - Present Medications Home Medications: Ambulatory Orders Medication Instructions Recorded Confirmed Venlafaxine ER [Effexor ER] 225 mg PO DAILY 02/05/19 09/13/20 Acetaminophen [Tylenol] 650 mg PO Q6H PRN 09/02/20 09/13/20 Ibuprofen [Motrin] 600 mg PO Q6H PRN 09/02/20 09/13/20 Ondansetron Odt [Zofran Odt] 4 mg TL Q6H PRN #10 tablet 09/13/20 oxyCODONE [Roxicodone] 5 mg PO ONCE PRN #20 tablet 09/13/20 oxyCODONE [Roxicodone] 5 mg PO Q4-6H PRN #20 tablet 09/13/20 Oxycodone HCl/Acetaminophen 1 - 2 each PO Q6H PRN #14 tablet 12/13/20 [Percocet 5-325 mg Tablet] - Allergies Allergies/Adverse Reactions: Allergies Allergy/AdvReac Type Severity Reaction Status Date / Time No Known Drug Allergies Allergy Verified 12/13/20 15:29 - Social History Does the pt smoke?: No Smoking Status: Never smoker Does the pt drink ETOH?: No Does the pt have substance abuse?: No - Immunizations Immunizations are current?: Yes - POLST Patient has POLST: No PD ED PE NORMAL - Vitals Vital signs reviewed: Yes - General General: Alert and oriented X 3, No acute distress - Abdomen Abdomen: Normal bowel sounds, Soft, Non tender, Other (Abdominal examination is nontender, bedside ultrasound shows single live intrauterine with a heart rate of 155 and no free fluid.) - Derm Derm: Normal color, Warm and dry - Extremities Extremities: No edema, No calf tenderness / cord - Neuro Neuro: Alert and oriented X 3, Normal speech Results - Vitals Vitals: Vital Signs - 24 hr 12/13/20 12/13/20 15:29 16:08 Temperature 36.6 C 36.7 C Heart Rate 93 88 Respiratory 18 18 Rate Blood Pressure 160/110 H 127/106 H O2 Saturation 100 100 Oxygen O2 Source Room air - EKG (time done) 1559 Rate: Rate (enter#) (88) Rhythm: NSR [place]: Normal Intervals: Normal [place] QRS: Normal Ischemia: Normal ST segments Computer interpretation: Agree with computer - Labs Labs: Laboratory Tests 12/13/20 12/13/20 16:09 16:09 WBC 13.9 H RBC 4.24 Hgb 12.3 Hct 37.6 MCV 88.7 MCH 29.0 MCHC 32.7 RDW 15.8 H Plt Count 408 MPV 9.1 Neut # (Auto) 11.1 H Lymph # (Auto) 1.9 [place] # (Auto) 0.7 Eos # (Auto) 0.1 Baso # (Auto) 0.1 Absolute Nucleated RBC 0.00 Nucleated RBC % 0.0 Sodium 136 Potassium 3.6 Chloride 101 Carbon Dioxide 25 Anion Gap 10.0 BUN 10 Creatinine 0.7 Estimated GFR (MDRD) 94 Glucose 91 Calcium 9.1 PD MEDICAL DECISION MAKING - ED course ED course: 35-year-old woman presents with an exacerbation of pelvic pain causing syncope. Given the history I truly doubt there was actual seizure activity. Note made that she has a blood type of A- and this was discussed by phone with our on-call security assistant, Dr. Pretty, given the upcoming therapeutic medical she agreed with giving Rhophylac. There is no evidence of ectopic. We will check a CBC. No evidence of intra-abdominal free fluid. Benign exam. Departure - Departure Disposition: 01 Home, Self Care Clinical Impression: Pelvic pain affecting Qualifiers: Trimester: first trimester Qualified Code(s): O26.891 - Other specified related conditions, first trimester; R10.2 - Pelvic and perineal pain Condition: Good Record reviewed to determine appropriate education?: Yes Instructions: ED Pelvic Pain [facility] Prescriptions: Oxycodone HCl/Acetaminophen [Percocet 5-325 mg Tablet] 1 - 2 each PO Q6H PRN #14 tablet PRN Reason: pain Comments: Let [facility] know that you had 300 mcg of Rh immunoglobulin IM today. Return if worsening.
[2020-12-13 16:20] LABS: BASOPHILS # (AUTO) 0.1 10^3/uL (0.0-0.1); BASOPHILS % (AUTO) 0.4 %; EOSINOPHILS # (AUTO) 0.1 10^3/uL (0.0-0.7); EOSINOPHILS % (AUTO) 0.4 %; HGB - HEMOGLOBIN 12.3 g/dL (12.0-16.0); LYMPHOCYTES # (AUTO) 1.9 10^3/uL (1.5-3.5); LYMPHOCYTES % (AUTO) 13.9 %; MEAN CORPUSCULAR HGB CONC 32.7 g/dL (32.0-36.0); MEAN CORPUSCULAR VOLUME 88.7 fL (81.0-99.0); MEAN PLATELET VOLUME 9.1 fL (7.9-10.8); MONOCYTES # (AUTO) 0.7 10^3/uL (0.0-1.0); MONOCYTES % (AUTO) 5.1 %; NEUTROPHILS # (AUTO) 11.1 10^3/uL (1.5-6.6); NEUTROPHILS % (AUTO) 79.9 %; PLT - PLATELET COUNT 408 10^3/uL (130-450); RED BLOOD COUNT 4.24 10^6/uL (4.20-5.40); RED CELL DISTRIBUTION WIDTH 15.8 % (12.0-15.0); WHITE BLOOD COUNT 13.9 x10^3/uL (4.8-10.8)
[2020-12-13 16:30] LABS: CALCIUM 9.1 mg/dL (8.5-10.3); CREATININE 0.7 mg/dL (0.4-1.0)
[2020-12-13 17:00] VITALS: BP 124/88
== END 2020-12-13 16:45 | disposition home or self-care (01) ==
LOC: ED 15:24
DX: O26.891 Other specified pregnancy related conditions, first trimester (principal); R10.2 Pelvic and perineal pain; Z67.11 Type A blood, Rh negative; O99.891 Other specified diseases and conditions complicating pregnancy; R55 Syncope and collapse
CPT/HCPCS: 36415; 80048; 85025; 93005; 96372; 99283; 99284; A9270

== ENCOUNTER 2020-12-20 14:54 | Emergency (ER) | payer OTHER ==
[2020-12-20 15:10] LABS: MUDS CUTOFF CONCENTRATIONS CUTOFF CONC BELOW:
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
[2020-12-20 15:17] LABS: BASOPHILS # (AUTO) 0.1 10^3/uL (0.0-0.1); BASOPHILS % (AUTO) 0.4 %; HGB - HEMOGLOBIN 12.5 g/dL (12.0-16.0); LYMPHOCYTES # (AUTO) 1.1 10^3/uL (1.5-3.5); LYMPHOCYTES % (AUTO) 8.7 %; MEAN CORPUSCULAR HEMOGLOBIN 28.5 pg (27.0-31.0); MEAN CORPUSCULAR HGB CONC 32.4 g/dL (32.0-36.0); MEAN CORPUSCULAR VOLUME 88.1 fL (81.0-99.0); MEAN PLATELET VOLUME 8.9 fL (7.9-10.8); MONOCYTES # (AUTO) 0.5 10^3/uL (0.0-1.0); MONOCYTES % (AUTO) 4.3 %; NEUTROPHILS # (AUTO) 10.9 10^3/uL (1.5-6.6); NEUTROPHILS % (AUTO) 85.8 %; PLT - PLATELET COUNT 408 10^3/uL (130-450); RED BLOOD COUNT 4.38 10^6/uL (4.20-5.40); RED CELL DISTRIBUTION WIDTH 15.8 % (12.0-15.0); WHITE BLOOD COUNT 12.7 x10^3/uL (4.8-10.8)
[2020-12-20 15:19] LABS: BILIRUBIN,URINE NEGATIVE (NEGATIVE); GLUCOSE, URINE (UA) 100 mg/dL (NEGATIVE); KETONES,URINE (UA) >=80 mg/dL (NEGATIVE); LEUKOCYTE ESTERASE, URINE LARGE (NEGATIVE); NITRITE,URINE POSITIVE (NEGATIVE); OCCULT BLOOD,URINE LARGE (NEGATIVE); PROTEIN,URINE >=300 mg/dL (NEGATIVE); UROBILINOGEN,URINE >=8.0 E.U./dL (NORMAL)
[2020-12-20 15:21] LABS: CLARITY,URINE CLOUDY (CLEAR)
[2020-12-20 15:26] LABS: HCG UR QUAL POSITIVE
[2020-12-20 15:29] LABS: BACTERIA,URINE Few /HPF (None Seen); MUCUS,URINE Few Strands; SQUAMOUS EPITHELIAL CELL,UR RARE Squamous (<= Few)
[2020-12-20 15:31] LABS: ACETAMINOPHEN < 10 ug/mL (10-30); ALBUMIN 4.7 g/dL (3.2-5.5); ALBUMIN/GLOBULIN RATIO 1.2 (1.0-2.2); ALKALINE PHOSPHATASE 63 IU/L (42-121); ALT ALANINE AMINOTRANSFERASE 16 IU/L (10-60); AST ASPARTATE AMINOTRANSFERASE 17 IU/L (10-42); BILIRUBIN,TOTAL 0.4 mg/dL (0.2-1.0); BUN - BLOOD UREA NITROGEN 12 mg/dL (6-20); CALCIUM 9.7 mg/dL (8.5-10.3); CARBON DIOXIDE - CO2 23 mmol/L (21-32); CHLORIDE 103 mmol/L (101-111); CREATININE 0.5 mg/dL (0.4-1.0); GLUCOSE 125 mg/dL (70-100); LIPASE 29 U/L (22-51); SALICYLATE < 6.0 mg/dL; TOTAL PROTEIN 8.6 g/dL (6.7-8.2)
[2020-12-20 15:34] LABS: COCAINE SCREEN URINE NEGATIVE (NEGATIVE); METHAMPHETAMINES SCREEN, URINE NEGATIVE (NEGATIVE)
[2020-12-20 15:35] LABS: AMPHETAMINE SCREEN,URINE NEGATIVE (NEGATIVE); BENZODIAZEPINES SCREEN, URINE NEGATIVE (NEGATIVE); METHADONE SCREEN, URINE NEGATIVE (NEGATIVE); OPIATE SCREEN, URINE NEGATIVE (NEGATIVE); OXYCODONE SCREEN, URINE NEGATIVE (NEGATIVE); PROPOXYPHENE SCREEN, URINE NEGATIVE (NEGATIVE); TRICYCLIC ANTIDEPRESSANT,URINE NEGATIVE (NEGATIVE)
[2020-12-20] MEDS ORDERED: VENLAFAXINE ER 75 MG CAPSULE PO STA (15:39)
[2020-12-20] MEDS ORDERED: NITROFURANTOIN MACRO 100 MG CAPSULE PO STA (15:40)
[2020-12-20] MEDS ORDERED: POTASSIUM CHLORIDE 20 MEQ TABLET PO STA (16:09)
[2020-12-20 16:57] LABS: C. PNEUMONIAE- RESP PCR PANEL NOT DETECTED
[2020-12-20] MEDS ORDERED: ONDANSETRON ODT 4 MG TABLET TL STA (17:51)
[2020-12-20] MEDS ORDERED: hydrOXYzine PAMOATE 25 MG CAPSULE PO STA (17:51)
[2020-12-20] MEDS ORDERED: OLANZapine 10 MG VIAL IM STA (18:16)
[2020-12-20] MEDS ORDERED: cephALEXin 250 MG CAPSULE PO STA (23:42)
[2020-12-21] MEDS ORDERED: OLANZapine ODT 5 MG TABLET TL STA (00:49)
[2020-12-21] MEDS ORDERED: OLANZapine 10 MG VIAL IM STA ×2 (08:08→12:23)
[2020-12-21] MEDS ORDERED: VENLAFAXINE ER 75 MG CAPSULE PO STA (16:10)
[2020-12-21 17:33] VITALS: BP 147/99
== END 2020-12-21 18:10 ==
LOC: EDBD → EDUNIT# → ED 14:54
DX: F41.0 Panic disorder [episodic paroxysmal anxiety] (principal); F32.9 Major depressive disorder, single episode, unspecified; Z91.14 Patient's other noncompliance with medication regimen; Z20.822 Contact with and (suspected) exposure to COVID-19
CPT/HCPCS: 0202U; 36415; 80053; 80306; 80307; 80320; 80329; 81001; 81025; 83690; 84443; 85025; 87086; 96372; 99283; 99285; A9270; 81003